=== PATIENT | female | born 1975 | race Caucasian/White ===

== ENCOUNTER → 2023-12-18 06:20 | Day surgery (SDC) | payer OTHER, BC, SELFPAY | LOC: GI 06:20 | PROVIDERS: ATTENDING PHYSICIAN Internal Medicine Gastroenterology | DX: Z12.11 Encounter for screening for malignant neoplasm of colon (principal); Z83.719 Family history of colon polyps, unspecified; K57.30 Diverticulosis of large intestine without perforation or abscess without bleeding; K63.5 Polyp of colon | CPT/HCPCS: 45385; 88305 ==

== ENCOUNTER 2024-11-02 01:33 | Inpatient (IN) | payer BC, SELFPAY ==
[2024-11-01 16:28] VITALS: BP 163/96
[2024-11-01 16:48] LABS: Hematocrit 43.8 % (37.0-47.0); Hemoglobin 14.7 g/dL (12.0-16.0); Mean Corp Hgb Conc. 33.6 g/dL (33.0-37.0); Mean Corpuscular Volume 87.3 fL (81.0-99.0); Nucleated Red Blood Cells % 0 %; Platelet Count 220 10^3/uL (130-400); Red Cell Dist. Width 14.6 % (11.5-14.5)
[2024-11-01 16:56] LABS: Urine Character Clear (Clear)
[2024-11-01 17:05] LABS: ALT (SGPT) 30 U/L (0-35); AST (SGOT) 19 U/L (14-36); Albumin 4.8 g/dl (3.5-5.0); Alkaline Phosphatase 66 U/L (38-126); Blood Urea Nitrogen 9 mg/dl (7-17); Calcium 9.9 mg/dl (8.4-10.2); Carbon Dioxide 23 mmol/L (22-30); Chloride 106 mmol/L (98-107); Glucose 193 mg/dl (70-99); Lipase 456 U/L (23-300); Potassium 4.4 mmol/L (3.5-5.1); Sodium 136 mmol/L (135-145); Total Protein 7.9 g/dl (6.3-8.2); eGFR > 60.00
[2024-11-01 17:10] LABS: Troponin I < 0.012 ng/ml
[2024-11-01 22:06] VITALS: BMI 32.5
--- NOTE | 2024-11-01 22:23 | ED.GENMED ---
Addendum entered and electronically signed by Anselmo Dey MD 11/02/24 08:38:
Radiology discrepancy from overnight - possible liver lesion not noted during initial interpretation. Information forwarded to the hospitalist service, as patient was admitted overnight.
Original Note:
History of Present Illness
<Janice Jaramillo MD, Resident - Last Filed: 11/02/24 00:41>
General
Chief Complaint: Abdominal Pain
Source: patient
Time Seen by Provider: 11/01/24 22:01
History of Present Illness
History of Present Illness:
Ms. Linda is a 48-year-old female with history of acute cholecystitis and pancreatitis s/p biliary stenting and eventual cholecystectomy, hypothyroidism s/p thyroid resection, and hyperlipidemia who presents with 3 days of 9/10 crampy abdominal
pain, initially epigastric, now radiating bilaterally to the back in a bandlike pattern. She has tried Motrin without relief. She endorses nausea, anorexia, chills, and diarrhea that started today. She states that the pain is worst after eating
and better laying down, although always there. She denies recent changes in diet, infection, trauma to the area, SOB, recent travel, and symptoms.
Phy Exam
<Janice Jaramillo MD, Resident - Last Filed: 11/02/24 00:41>
General Physical Exam
General Presentation: moderate distress
General Skin: dry and ashen
General Habitus: normal
General Mental: alert
General Hydration: dry mucous membranes
ENT Exam
ENT Exam: EOMI
Pulmonary Exam
Pulmonary Exam: lungs clear and no respiratory distress
Gastrointestinal Exam
Gastrointestinal Exam: soft, non distended and tender (upper abdomen & epigastric area)
Course
<Janice Jaramillo MD, Resident - Last Filed: 11/02/24 00:41>
Orders/Labs/Results
Orders:
Orders
11/01/24 Dinner
NPO
Allow oral meds: Yes
Allow clear liquids: No
11/01/24 16:33
Electrocardiogram (*1) Urgent
Reason for Study: Abdominal Pain
11/01/24 16:34
EKG- Treatment ONCE
11/01/24 16:40
Complete Blood Count/With Diff Urgent
Comprehensive Metabolic Panel Urgent
Lipase Urgent
Troponin I Urgent
11/01/24 16:43
Urinalysis Reflex To Culture Urgent
Date Specimen was Collected: 11/01/24
Time Specimen was Collected: 16:34
Urine Microscopic Reflex Cult Urgent
11/01/24 22:23
0.9% Sodium Chloride 1000 ml [Nss] 1,000 ml IV BOLUS
11/01/24 22:40
Ketorolac [Toradol] 30 mg IV NOW STA
11/01/24 22:51
CT Abd/pelvis W Iv Cont Urgent
Comment:
Reason For Exam: abdominal pain
11/02/24 00:14
Piperacillin/Tazo 3.375 Gram [Zosyn] 3.375 gram in 50 ml IV NOW
11/02/24 00:24
Morphine Sulfate 4 mg IV NOW STA
Ondansetron Injectable [Zofran] 4 mg IV NOW STA
11/02/24 00:33
GASTROINTESTINAL CONSULT Routine
Consulting Provider: David Wood
Was physician already notified: Yes
Reason for consult: Pt w/ choledocholithiasis & acute pancreatitis, needs ERCP, spoke w/ GI ON
11/02/24 00:50
Admit/Transfer Patient As Directed
Co-Sign Provider:
Level of Care: Inpatient admission
Assign to:: Medical/Surgical
Physician / Group: Lucy
Diagnosis: choledocholtihiasis, pancreatitis
Reason for Hospitalization: recurrent gallstone pancreatitis
Expected length of stay greater than two midnights?: Yes
ELOS- Estimated Length of Stay in days: 2
I certify the patient meets the requirements for IP care: Yes
11/02/24 00:52
PRN Pain Medication Management As Directed
May give lesser potent ordered pain med per pt: Yes
preference::
Protocol:: Medication orders for pain may be administered in a
manner that supports deferring to patient preference
when the pt is:
- Requesting an ordered lesser potent pain medication.
Least to most potent pain medications are defined
as: acetaminophen < NSAID < tramadol < opioids
(morphine, oxycodone, hydromorphone).
- Requesting a lesser dose of the same medication IF
ORDERED.
- Requesting a less intrusive route of administration
if both routes are prescribed by the provider (PO <
IV).
11/02/24 00:53
Code Status As Directed
Resuscitation Status: Full Code
11/02/24 02:30
Acetaminophen [Tylenol] 650 mg PO Q4HPRN PRN
Bisacodyl [Dulcolax] 10 mg RECTAL [id number] PRN
HYDROmorphone [Dilaudid] 0.5 mg IV Q4HPRN PRN
Ketorolac [Toradol] 10 mg IV Q6HPRN PRN
Lactated Ringers [Lr] 1,000 ml IV 80 mls/hr
Ondansetron Injectable [Zofran] 4 mg IV Q6HPRN PRN
Polyethylene Glycol Powder [Miralax] 17 grams PO DAILYPRN PRN
11/02/24 02:30
Activity As Directed
Activity Level: With Assistance
Vital Signs As Directed
Frequency: Per unit guidelines
DX Deep Vein Thrombosis Video Routine
11/02/24 06:00
Basic Metabolic Panel IN AM
Complete Blood Count/No Diff IN AM
Levothyroxine [Synthroid] 200 mcg PO DAILY @ 0600
Piperacillin/Tazo 3.375 Gram [Zosyn] 3.375 gram in 50 ml IV Q6H
11/02/24 18:00
Enoxaparin Sodium [Lovenox] 40 mg SC QPM
Abnormal Lab Results
11/01/24 11/01/24
16:40 16:43
WBC 15.3 H 10^3/uL
(4.8-10.8)
RDW 14.6 H %
(11.5-14.5)
MPV 11.8 H fL
(7.4-10.4)
Abs Immat Gran (auto) 0.1 H 10^3/uL
(0-0.05)
Absolute Neuts (auto) 12.8 H 10^3/uL
(1.4-6.5)
Absolute Monos (auto) 0.9 H 10^3/uL
(0.1-0.6)
Neutrophils % 83.5 H %
(42.2-75.2)
Lymphocytes % 9.0 L %
(20.5-51.1)
Creatinine 0.5 L mg/dL
(0.6-1.0)
Glucose 193 H mg/dl
(70-99)
Lipase 456 H U/L
(23-300)
Ur Occult Blood Reflex 3+ A
(Negative)
Urine RBC 7-10 A /HPF
(0-2)
Urine Bacteria (Reflex) Few A
(Negative)
Urine Glucose 2+ A
(Negative)
11/01/24 16:40
11/01/24 16:40
Vital Signs
Initial and Last Documented VS:
Initial Vital Signs
Temp Pulse Resp BP Pulse Ox
98.6 F 105 16 163/96 98
11/01/24 16:28 11/01/24 16:28 11/01/24 16:28 11/01/24 16:28 11/01/24 16:28
Last Documented Vital Signs
Temp Pulse Resp BP Pulse Ox
98.4 F 98 20 121/78 96
11/02/24 02:39 11/02/24 02:39 11/02/24 02:39 11/02/24 02:39 11/02/24 02:39
<Chava Soto, DO - Last Filed: 11/02/24 02:54>
Orders/Labs/Results
Orders:
Orders
11/01/24 Dinner
NPO
Allow oral meds: Yes
Allow clear liquids: No
11/01/24 16:33
Electrocardiogram (*1) Urgent
Reason for Study: Abdominal Pain
11/01/24 16:34
EKG- Treatment ONCE
11/01/24 16:40
Complete Blood Count/With Diff Urgent
Comprehensive Metabolic Panel Urgent
Lipase Urgent
Troponin I Urgent
11/01/24 16:43
Urinalysis Reflex To Culture Urgent
Date Specimen was Collected: 11/01/24
Time Specimen was Collected: 16:34
Urine Microscopic Reflex Cult Urgent
11/01/24 22:23
0.9% Sodium Chloride 1000 ml [Nss] 1,000 ml IV BOLUS
11/01/24 22:40
Ketorolac [Toradol] 30 mg IV NOW STA
11/01/24 22:51
CT Abd/pelvis W Iv Cont Urgent
Comment:
Reason For Exam: abdominal pain
11/02/24 00:14
Piperacillin/Tazo 3.375 Gram [Zosyn] 3.375 gram in 50 ml IV NOW
11/02/24 00:24
Morphine Sulfate 4 mg IV NOW STA
Ondansetron Injectable [Zofran] 4 mg IV NOW STA
11/02/24 00:33
GASTROINTESTINAL CONSULT Routine
Consulting Provider: David Wood
Was physician already notified: Yes
Reason for consult: Pt w/ choledocholithiasis & acute pancreatitis, needs ERCP, spoke w/ GI ON
11/02/24 00:50
Admit/Transfer Patient As Directed
Co-Sign Provider:
Level of Care: Inpatient admission
Assign to:: Medical/Surgical
Physician / Group: Lucy
Diagnosis: choledocholtihiasis, pancreatitis
Reason for Hospitalization: recurrent gallstone pancreatitis
Expected length of stay greater than two midnights?: Yes
ELOS- Estimated Length of Stay in days: 2
I certify the patient meets the requirements for IP care: Yes
11/02/24 00:52
PRN Pain Medication Management As Directed
May give lesser potent ordered pain med per pt: Yes
preference::
Protocol:: Medication orders for pain may be administered in a
manner that supports deferring to patient preference
when the pt is:
- Requesting an ordered lesser potent pain medication.
Least to most potent pain medications are defined
as: acetaminophen < NSAID < tramadol < opioids
(morphine, oxycodone, hydromorphone).
- Requesting a lesser dose of the same medication IF
ORDERED.
- Requesting a less intrusive route of administration
if both routes are prescribed by the provider (PO <
IV).
11/02/24 00:53
Code Status As Directed
Resuscitation Status: Full Code
11/02/24 02:30
Acetaminophen [Tylenol] 650 mg PO Q4HPRN PRN
Bisacodyl [Dulcolax] 10 mg RECTAL [id number] PRN
HYDROmorphone [Dilaudid] 0.5 mg IV Q4HPRN PRN
Ketorolac [Toradol] 10 mg IV Q6HPRN PRN
Lactated Ringers [Lr] 1,000 ml IV 80 mls/hr
Ondansetron Injectable [Zofran] 4 mg IV Q6HPRN PRN
Polyethylene Glycol Powder [Miralax] 17 grams PO DAILYPRN PRN
11/02/24 02:30
Activity As Directed
Activity Level: With Assistance
Vital Signs As Directed
Frequency: Per unit guidelines
DX Deep Vein Thrombosis Video Routine
11/02/24 06:00
Basic Metabolic Panel IN AM
Complete Blood Count/No Diff IN AM
Levothyroxine [Synthroid] 200 mcg PO DAILY @ 0600
Piperacillin/Tazo 3.375 Gram [Zosyn] 3.375 gram in 50 ml IV Q6H
11/02/24 18:00
Enoxaparin Sodium [Lovenox] 40 mg SC QPM
Abnormal Lab Results
11/01/24 11/01/24
16:40 16:43
WBC 15.3 H 10^3/uL
(4.8-10.8)
RDW 14.6 H %
(11.5-14.5)
MPV 11.8 H fL
(7.4-10.4)
Abs Immat Gran (auto) 0.1 H 10^3/uL
(0-0.05)
Absolute Neuts (auto) 12.8 H 10^3/uL
(1.4-6.5)
Absolute Monos (auto) 0.9 H 10^3/uL
(0.1-0.6)
Neutrophils % 83.5 H %
(42.2-75.2)
Lymphocytes % 9.0 L %
(20.5-51.1)
Creatinine 0.5 L mg/dL
(0.6-1.0)
Glucose 193 H mg/dl
(70-99)
Lipase 456 H U/L
(23-300)
Ur Occult Blood Reflex 3+ A
(Negative)
Urine RBC 7-10 A /HPF
(0-2)
Urine Bacteria (Reflex) Few A
(Negative)
Urine Glucose 2+ A
(Negative)
11/01/24 16:40
11/01/24 16:40
Vital Signs
Initial and Last Documented VS:
Initial Vital Signs
Temp Pulse Resp BP Pulse Ox
98.6 F 105 16 163/96 98
11/01/24 16:28 11/01/24 16:28 11/01/24 16:28 11/01/24 16:28 11/01/24 16:28
Last Documented Vital Signs
Temp Pulse Resp BP Pulse Ox
98.4 F 98 20 121/78 96
11/02/24 02:39 11/02/24 02:39 11/02/24 02:39 11/02/24 02:39 11/02/24 02:39
<Janice Jaramillo MD, Resident - Last Filed: 11/02/24 00:41>
MDM/Problems Addressed
Differential Diagnosis Includes:
Pancreatitis
Appendicitis
Gastroenteritis
Colitis
Pyelonephritis
MDM/Problems Addressed:
Ms. Linda is a 48-year-old female with history of acute cholecystitis and pancreatitis s/p biliary stenting and eventual cholecystectomy, hypothyroidism s/p thyroid resection, and hyperlipidemia who presents with 3 days of 9/10 crampy abdominal
pain, initially epigastric, now radiating bilaterally to the back in a bandlike pattern.
#Abdominal Pain
#History of Acute Cholecystitis and Pancreatitis
#Choledocholithiasis
#Acute Pancreatitis
WBC 15.3, Lipase 456. UA with blood/RBC, bacteria. BP 163/96, HR 105. TTP epigastrically and towards the back. Overall, her presentation is most concerning for acute pancreatitis, but appendicitis, gastroenteritis, and colitis are also possible.
Await final CT A/P read; prelim supports acute pancreatitis and choledocholithiasis. We will admit to med/surg for further workup and treatment.
- IV NSS 1L Bolus
- IV Toradol 30mg x 1
- CT A/P with IV Contrast:
-- Prelim report by Dr. Alvarez:
5 mm stone at the level of the ampulla resulting in dilation of the pancreatic duct, which measures up to 6 mm, concerning for choledocholithiasis/retained stone. Peripancreatic stranding, may represent acute pancreatitis.
No bowel obstruction. Likely s/p cholecystectomy. Normal appendix.
Incidentals:
-No obstructive uropathy.
-Right hepatic hypodensity, not well-characterized
- Per GI (Dr. Wood):
--Placed formal consult
--Patient NPO for GI procedure/ERCP in am
--IV Zosyn 3.375mg x1
<Janice Jaramillo MD, Resident - Last Filed: 11/02/24 00:41>
*Pulse Oximetry
SaO2: 100
Oxygen Mode of Delivery: Room air
Patient hypoxic: no
*Critical Care Note
Total Time (30-74mins, 75-104mins- exclusive of procedures): Not Applicable
ED Attending Note
<Janice Jaramillo MD, Resident - Last Filed: 11/02/24 00:41>
-
Portions of this chart may have been created with voice recognition software.� Occasional wrong word or��sound alike� substitutions may have occurred due to the inherent limitations of voice recognition software.
<Chava Soto, DO - Last Filed: 11/02/24 02:54>
ED Attending Note
Patient seen and examined by attending physician: Yes
I performed a history and physical exam of patient and discussed management with resident, I reviewed resident's note and agree with documented findings and plan of care.: Yes
ED Attending Note:
I have reviewed and agree with history and treatment plan by Janice Jaramillo MD. My exam revealed
Physical Exam
General: no apparent distress, not acutely ill
Neck: supple. no meningeal signs. normal posterior pharynx
Heart: s1/s2 regular rate and rhythm, no murmur. equal radial
pulses.
HEENT: Pupils equal round reactive to light, EOMI
Lungs: no acute respiratory distress. clear bilaterally
Abdomen: normal bowel sounds. Epigastric tenderness. No CVAT
Neuro: alert and oriented. no focal neurological deficits cranial nerves II through XII intact
Skin: no rash
Psychiatric: well kept. interactive and cooperative
Extremities: no edema. no calf tenderness. negative homans. good distal pulses
CT abdomen pelvis consistent with pancreatitis and pancreatic duct stone. Admit to hospitalist with consult to GI for ERCP.
Discharge Plan
Departure
Patient Disposition: Admit
Date of Disposition: 11/02/24
Time of Disposition: 00:35
Admit to: Med/Surg
Presentation/result/management discussed w/ accepting MD/DO: Hospitalist
Condition: Good
Discharge Problem:
Choledocholithiasis, Acute pancreatitis
Interventions
Interventions:
*Risk Screen - Suicide Last Done: 11/01/24 16:28
*General Assessment Last Done: 11/01/24 22:12
*Neglect/Abuse Screening Last Done: 11/01/24 16:28
*ED- Fall Risk Assessment Last Done: 11/01/24 22:12
*ED COVID-19 Vaccine History Last Done: 11/01/24 22:12
*Nursing Disposition Last Done: 11/02/24 02:18
PK-Pkqufd-Duukbscuyd Assessment Last Done: 11/01/24 23:23
Discharge Date and Time
Discharge Date/Time: 11/02/24 02:18
[2024-11-01] MEDS: TORADOL 30 MG IV (22:41)
[2024-11-01] MEDS: NSS 1000 IV (22:44)
[2024-11-01 23:20] VITALS: BP 122/64
[2024-11-02] VITALS (13 sets, daily range): BP systolic 93–129; BP diastolic 55–79; BMI 31.0
[2024-11-02] MEDS: ZOSYN 50 IV ×4 (00:21→20:19)
--- NOTE | 2024-11-02 00:43 | HPS.HSE ---
Family Physician
-
Family Physician: Ken Jain MD
Chief Complaint
-
Abdominal pain
History of Present Illness
This is a 48-year-old female with past medical history significant for cholecystitis and pancreatitis status post stenting and later on cholecystectomy, hypothyroid status post thyroid resection, hyperlipidemia who presents to the emergency
department about 3 days of crampy abdominal pain.
She reports initially having epigastric pain now radiating to the back with nausea chills and diarrhea. She denied fevers at home. She has intolerance of oral intake. She denies any sick contact. She denies any recent travels. She denies any
alcohol use. She denies any changes to the color of her skin in the urine or eyes.
On arrival in the emergency department she was afebrile, blood pressure was 160/90 with a pulse of 91 and she was satting 100% on room air.
CBC shows a white count of 15.3 otherwise unremarkable. Her electrolytes BUN/creatinine were normal. Glucose was 183.
Lipase was elevated at over 400. LFTs were normal.
CT of the abdomen and pelvis showing 5 mm stone at the level of the ampulla resulting dilation of the pancreatic duct which now measures up to 6 mm concerning for retained stone, peripancreatic stranding was observed.
Medical History
Past Medical History
Past Medical History: Reports Hypercholesterolemia, Hypothyroidism and Other
Additional Past Medical History:
History of gallstone pancreatitis status post ERCP and stenting 2018
Past Surgical History: Reports Cholecystectomy
Social History
Tobacco: Non-smoker
Alcohol: Occasional
Drug: None
Family History
Family History: Not pertinent
Allergies / Home Medications
Allergies reflects when Allergies were last updated in [facility].
Home Medications with original date entered in [facility]
Allergy/Medication List:
Allergies
Allergy/AdvReac Type Severity Reaction Status Date / Time
latex Allergy Rash Verified 11/01/24 16:32
Home Medications
atorvastatin 10 mg tablet 10 mg PO HS 11/01/24
levothyroxine 200 mcg tablet 200 mcg PO DAILY 11/01/24
multivitamin 1 tab PO DAILY 11/01/24
Review of Systems
-
Constitutional: Reports No Symptoms
EENT: Reports No Symptoms
Respiratory: Reports No Symptoms
Cardiac: Reports No Symptoms
Abdomen/GI: Reports Abdominal Pain, Nausea and Vomiting
: Reports No Symptoms
Musculoskeletal: Reports No Symptoms
Skin: Reports No Symptoms
Neurological: Reports No Symptoms
Endocrine: Reports No Symptoms
Hematologic/Lymphatic: Reports No Symptoms
Psych: Reports No Symptoms
Physical Exam
Vital Signs
Vital Signs
Temp Pulse Resp BP Pulse Ox
98.6 F 91 22 163/96 99
11/01/24 16:28 11/01/24 22:45 11/01/24 22:45 11/01/24 16:28 11/01/24 23:20
Physical Exam
General: Well Developed, Well Nourished and No Apparent Distress
HEENT: NormoCephalic, Moist mucous membranes and Atraumatic
Respiratory: Clear
Cardiac: S1/S2 and Regular Rhythm; No Murmur or Rub
GI: Soft, Non Distended and Normal Bowel Sounds; No Organomegaly
Rectal: Deferred by Provider
Musculoskeletal: No Clubbing, No Cyanosis and No Edema
Skin: No Rash
Neuro: AO x 3 and Nonfocal/grossly intact
Laboratory Results
-
11/01/24 16:40
11/01/24 16:40
Laboratory Results
Total Bilirubin 0.8 mg/dl (0.2-1.3) 11/01/24 16:40
AST 19 U/L (14-36) 11/01/24 16:40
ALT 30 U/L (0-35) 11/01/24 16:40
Alkaline Phosphatase 66 U/L (38-126) 11/01/24 16:40
Troponin I < 0.012 ng/ml 11/01/24 16:40
Lipase 456 U/L (23-300) H 11/01/24 16:40
Data Reviewed
-
CT Scan: Report Reviewed by me
Lab Data: Labs Reviewed by me
Old Records: Reviewed
Impression/Plan
-
IMPRESSION:
This is a 48-year-old female presents to the emergency department with abdominal pain found to have pancreatitis with choledocholithiasis. LFTs are normal. There is no fevers. She does have leukocytosis to 15.3. Unlikely but cannot rule out
cholangitis entirely.
PLAN:
Choledocholithiasis with pancreatitis
-Admit to MedSurg
-N.p.o.
-IV Zosyn
-Pain control antiemetic
-Trend LFTs
- based on CT, will hold off on MRCP pending GI eval
-GI consulted, possible ERCP in am.
DVT PPX - lovenox sq
Code status - Full code
[2024-11-02] MEDS: DILAUDID 0.5 MG IV ×4 (01:44→14:56)
[2024-11-02] MEDS: LR 1000 IV ×2 (02:45→20:19)
[2024-11-02] MEDS: SYNTHROID 200 MCG PO (05:42)
[2024-11-02 06:53] LABS: Hematocrit 38.4 % (37.0-47.0); Hemoglobin 12.9 g/dL (12.0-16.0); Mean Corp Hgb Conc. 33.6 g/dL (33.0-37.0); Mean Corpuscular Volume 87.5 fL (81.0-99.0); Platelet Count 179 10^3/uL (130-400); Red Cell Dist. Width 14.6 % (11.5-14.5)
[2024-11-02 07:23] LABS: Blood Urea Nitrogen 6 mg/dl (7-17); Calcium 8.6 mg/dl (8.4-10.2); Carbon Dioxide 22 mmol/L (22-30); Chloride 109 mmol/L (98-107); Estimated Creatinine Clearance 106 ml/min; Glucose 128 mg/dl (70-99); Potassium 3.7 mmol/L (3.5-5.1); Sodium 136 mmol/L (135-145); eGFR > 60.00
--- NOTE | 2024-11-02 08:24 | CON.GI ---
Addendum entered and electronically signed by David Wood MD 11/02/24 15:51:
The patient was seen and examined by me independently in collaboration with the nurse practitioner.
Past medical history/social history/medications/allergies/family history reviewed.
Lab data and imaging data reviewed.
48-year-old female past medical history of papillary thyroid cancer with prior thyroidectomy and new radiation, prior gallstone pancreatitis with post ERCP pancreatitis Edwin in 2019, cholecystectomy also in 2019 presenting with abdominal pain
in the setting of NSAID use post hysterectomy in July 2024, found to have normal LFTs including normal bilirubin, lipase 456, white blood cell count 15.3 on admission, repeat 12.4, however was also found to have 0.5 cm stone at the level of the
ampulla with mild dilation of pancreatic duct and mild peripancreatic stranding suspicious for pancreatitis. 1.7 cm hepatic lesion recommend MRI for evaluation.
Reviewed with advanced endoscopy. Concerning for possible choledocholithiasis although no obstruction given normal bilirubin, possible pancreatic duct stone given pancreatic ductal dilation, differential also includes peptic ulcer disease given
NSAID use.
Plan for EUS/ERCP/EGD for further evaluation with Dr. Campbell. I discussed with patient risk, alternatives, benefits of procedure including but not limited to infection, perforation, bleeding, pancreatitis. Patient did ask about her risk of
pancreatitis given her prior history of pancreatitis which would be increased. I recommend that she reviews this as well with Dr. Campbell. Further recommendations pending procedure.
For now, continue IV antibiotics, n.p.o., IV fluids.
Incidentally found liver lesions needs MRI outpatient.
Addendum entered and electronically signed by CONCETTA Carballo 11/02/24 10:13:
reviewed with Dr. Campbell plan for ERCP today +/- EGD. reviewed with pt agreeable to proceed-- discussed with pt for OP MRI to follow up on liver leisons.
Original Note:
Consultation
-
Date/Time Consultation Requested: 11/02/2429
Date/Time Consultation Performed: 11/02/24824
Requesting Provider: Janice Jaramillo MD
Performing Provider: CONCETTA Sarah, Jossie Wood MD
Reason for Consultation: pancreatitis
Medical History
Chief Complaint / HPI
History of Present Illness:
Pt is a 48yo with hx papillary thyroid CA with prior thyroidectomy no prior radiation, hypercholesterolemia, fibroid with lap GRABIEL July 2024,sinus surgery and prior cholecystitis, pancreatitis with prior stenting and erika with onset of abdominal
pain. On admission noted with normal LFT's with lipase 456. CT complete with concern for 0.5 cm stone at level of ampulla with mild dilatation of pancreatic duct and mild panc stranding suspicious for acute pancreatitis. Also noted hepatomegaly
1.7 cm hepatic lesion benign hemangioma but not confirmed other lesions note excluded recommended MRI. Fat containing umbilical hernia possible small HH.
In review with patient she recall pancreatitis in 2018 with 2 week admission. Initially at [facility] with ERCP with stent placement but was not sure if stone seen. She proceeded for erika after admission but was fine since that
time. She had recent hysterectomy in July at [place] with some post-op NSAID use but denies anticoagulation use. She began with abdominal pain on Thursday. First felt muscular with return to activity since hysterectomy but then pain intensified
and similar to prior pancreatitis. She admits to pain with nausea, temp below 100 and bout of diarrhea. pain was 10/10 at worse now 2/10 after pain meds. Better with pain pain and worse with eating. She denies any wt loss, odynophagia,
dysphagia, GERD, vomiting, constipation, blood or black in stools.
Past Medical History
Past Medical History: Cancer (papillary thyroid CA), Hypercholesterolemia and Other (seasonal allergies, gallstone pancreatitis with prior ERCP with stenting, lichen sclerosis eczema, vitamin D deficiency, uterine fibroids )
Past Surgical History: Cholecystectomy, (x 2 ), Gynecological (hysterectomy and b/l salpingectomy ) and Other (thyroidectomy, sinus surgery )
Social History
Tobacco: Former Smoker
Alcohol: Occasional
Drug: None
Personal:
Living: With Family
Employment: Employed
Family History
Family History: Other (sister wtih colon polyps, erika and hx crohns disease no family hx pancreatitis or pancreatic Cancer )
Allergies / Home Medications
Allergy/AdvReac Type Severity Reaction Status Date / Time
latex Allergy Rash Verified 11/01/24 16:32
�Medication �Instructions �Recorded
atorvastatin 10 mg tablet 10 mg PO HS 11/01/24
levothyroxine 200 mcg tablet 200 mcg PO DAILY 11/01/24
multivitamin 1 tab PO DAILY 11/01/24
Review of Systems
-
History Source: Patient
Constitutional: Reports No Symptoms
EENT: Reports No Symptoms
Respiratory: Reports No Symptoms
Abdomen/GI: Reports Abdominal Pain, Nausea and Diarrhea
: Reports No Symptoms
Musculoskeletal: Reports No Symptoms
Skin: Reports No Symptoms
Neurological: Reports No Symptoms
Endocrine: Reports No Symptoms
Hematologic/Lymphatic: Reports No Symptoms
Vital Signs
Temp Pulse Resp BP Pulse Ox
98.4 F 98 20 121/78 96
11/02/24 02:39 11/02/24 02:39 11/02/24 02:39 11/02/24 02:39 11/02/24 02:39
Physical Exam
Exam
General: Well Developed, Well Nourished and No Apparent Distress
HEENT: Normocephalic and Anicteric
Respiratory: Clear
Cardiac: Regular Rhythm
GI: Soft, Non Distended and Tender (epigastric with mild guarding )
Musculoskeletal: No Clubbing and No Cyanosis
Skin: Warm and Dry
Neuro: Awake, Alert and AO x 3
Psych: Calm
Results
WBC 12.4 10^3/uL (4.8-10.8) H 11/02/24 06:21
Hgb 12.9 g/dL (12.0-16.0) 11/02/24 06:21
Hct 38.4 % (37.0-47.0) 11/02/24 06:21
MCV 87.5 fL (81.0-99.0) 11/02/24 06:21
Plt Count 179 10^3/uL (130-400) 11/02/24 06:21
Absolute Neuts (auto) 12.8 10^3/uL (1.4-6.5) H 11/01/24 16:40
Sodium 136 mmol/L (135-145) 11/02/24 06:21
Potassium 3.7 mmol/L (3.5-5.1) 11/02/24 06:21
Chloride 109 mmol/L (98-107) H 11/02/24 06:21
Carbon Dioxide 22 mmol/L (22-30) 11/02/24 06:21
BUN 6 mg/dl (7-17) L 11/02/24 06:21
Creatinine 0.5 mg/dL (0.6-1.0) L 11/02/24 06:21
Calcium 8.6 mg/dl (8.4-10.2) 11/02/24 06:21
Total Bilirubin 0.8 mg/dl (0.2-1.3) 11/01/24 16:40
AST 19 U/L (14-36) 11/01/24 16:40
ALT 30 U/L (0-35) 11/01/24 16:40
Alkaline Phosphatase 66 U/L (38-126) 11/01/24 16:40
Lipase 456 U/L (23-300) H 11/01/24 16:40
Diagnostic Image Results:
11/01/24-- CT Abd/pelvis W Iv Cont
Prior cholecystectomy. 0.5 cm stone at the level of the ampulla of Vater with mild dilatation of the pancreatic duct and mild peripancreatic stranding suspicious for acute pancreatitis.
Mild hepatomegaly.
1.7 cm right lobe hepatic lesion which may represent a benign hemangioma but cannot be confirmed on the basis of this study. Other hepatic lesions cannot be excluded. Recommend MRI for more complete evaluation. Findings discussed by telephone with
Dr. Dey in the emergency department at 0832 hours on November 02, 2024.
Small fat only containing umbilical hernia and possible small hiatal hernia.
06/24/18 - US abdomen
1. 2-cm hypoechoic focus at the pancreas head. Differential diagnosis: prominent peripancreas lymph node (favored) versus exophytic pancreas head mass.
Recommendation: Abdomen MRI or CT for specific anatomic diagnosis.
2. Two liver foci, the larger 2 cm. Appearance characteristic of benign hemangioma.
Positive finding -- 2-cm pancreas/peripancreas nodule. Recommend MRI or CT.
Office of referring provider notified by telephone and by report fax.
Prior GI Procedures:
EGD: none
ERCP with stenting at [facility] 2019 for GS pancreatitis
Colonoscopy: shi 12/2023- 6 mm polyp TC, diverticulosis bx hyperplastic changes and lymphoid aggregate
Assessment / Plan
-
Pt is a 48yo with hx papillary thyroid CA with prior thyroidectomy no prior radiation, hypercholesterolemia, fibroid with lap GRABIEL July 2024,sinus surgery and prior cholecystitis, pancreatitis with prior stenting and erika with onset of abdominal
pain. On admission noted with normal LFT's with lipase 456. CT complete with concern for 0.5 cm stone at level of ampulla with mild dilatation of pancreatic duct and mild panc stranding suspicious for acute pancreatitis. Also noted hepatomegaly
1.7 cm hepatic lesion benign hemangioma but not confirmed other lesions note excluded recommended MRI. Fat containing umbilical hernia and possible small HH.
-mild pancreatitis with epigastric pain, mild pancreatitis on imaging
-concern for 0.5 cm CBD stone at level of ampulla
-leukocytosis
-hx gallstone pancreatitis/cholecystitis with 2 week admission in 2019 at [place] with ERCP stenting and erika
- 1.7 cm hepatic lesion/other lesions not excluded possible hemangioma
-recent NSAID use post GRABIEL
other med problems:
-papillary thyroid CA with prior thyroidectomy no prior radiation
-hypercholesterolemia
-fibroid with lap GRABIEL July 2024
-fat containing umbilical hernia/possible small HH per CT
PLAN:
etiology of symptoms with concern for CBD stone on CT vs PUD with recent NSAID vs other
will review imaging with Dr. Campbell for possible ERCP later today +/- EGD with hx NSAID use
cont NPO
IVF -- will increase to 150ml/hr
pain control
IV abx
NSAID avoidance
also noted liver lesions on CT -- prior lesion noted on US and known to patient t/c eventual MRI abdomen Outpatient to confirm-- reviewed with patient and copy of imaging given to patient
-
-
Thank you for consultation and allowing me to participate in the patient's care. Please call the radiation / chemistry technician GI physician during the after hours with any questions or concerns.
[2024-11-02] MEDS: PROTONIX IV 40 MG IV (10:47)
[2024-11-02] MEDS: NSS (PRESERVATIVE FREE) 10 ML IV (10:47)
--- NOTE | 2024-11-02 12:46 | CM ---
Initial Assessment Completed by RUTH Betancur.
Patient's is present. Patient lives in a single family home, 3 levels, 5 steps to enter, 5 steps to the 2nd floor and 8 steps to the third floor. Patient uses no DME, has not used home care services or inpatient SNF.
PCP: Ken Jain and uses [facility] pharmacy in [place]. Patient has transportation home.
Plan: Likely home with no needs.
--- NOTE | 2024-11-02 14:53 | W.PN.UPDATE ---
Update Note
Progress Note Update
Nonbbillable note
1. Distal CBD stone/choledocholithiasis-[address] abdomen pelvis noted in distal CBD. GI involved and plan to take patient for ERCP. Patient has a history of pancreatic stent in the past for episode of pancreatitis
2. Elevated lipase -minimally elevated lipase due to choledocholithiasis. Diet resumption postprocedure per GI
[2024-11-02] MEDS: LR IV (18:03)
--- NOTE | 2024-11-02 19:15 | W.PN.UPDATE ---
Update Note
Progress Note Update
EUS today showed features of chronic pancreatitis including parenchyma changes, dilated and tortuous pancreatic duct, and multiple calculi in the head/uncinate process, unclear if this stone is intraductal or parenchymal. Her CBD was normal without
choledocholithiasis. ERCP was performed, multiple attempts to cannulate ventral pancreatic duct could not be accomplished due to inability to locate pancreatic orifice. Decision was made to access the dorsal pancreatic duct via minor papilla, once
achieved copious amount of thick white proteinaceous pancreatic fluid and fragments of calcified stones drained. 5 Fr by 5 cm plastic pancreatic ductal stent was placed. The etiology of her chronic pancreatitis remains unclear, as she denies
alcohol or cigarettes. She did have a gallstone pancreatitis s/p ERCP at [facility] in 2019, which resulted in prolonged hospitalization. Records should be obtained and reviewed which may help to clarify etiology of her chronic pancreatitis.
[2024-11-02] MEDS: LOVENOX 40 MG SC (20:20)
[2024-11-03] MEDS: ZOSYN 50 IV ×3 (01:14→12:56)
[2024-11-03] MEDS: LR 1000 IV (05:07)
[2024-11-03] MEDS: SYNTHROID 200 MCG PO (05:09)
[2024-11-03] MEDS: NSS (PRESERVATIVE FREE) 10 ML IV (08:01)
[2024-11-03] MEDS: PROTONIX IV 40 MG IV (08:01)
[2024-11-03 08:42] VITALS: BP 124/77
[2024-11-03 08:54] LABS: Hematocrit 37.3 % (37.0-47.0); Hemoglobin 12.7 g/dL (12.0-16.0); Mean Corp Hgb Conc. 34.0 g/dL (33.0-37.0); Mean Corpuscular Volume 87.8 fL (81.0-99.0); Platelet Count 216 10^3/uL (130-400); Red Cell Dist. Width 14.3 % (11.5-14.5)
[2024-11-03 09:07] LABS: ALT (SGPT) 23 U/L (0-35); AST (SGOT) 16 U/L (14-36); Albumin 3.8 g/dl (3.5-5.0); Alkaline Phosphatase 64 U/L (38-126); Blood Urea Nitrogen 8 mg/dl (7-17); Calcium 9.2 mg/dl (8.4-10.2); Carbon Dioxide 23 mmol/L (22-30); Chloride 108 mmol/L (98-107); Estimated Creatinine Clearance 106 ml/min; Glucose 107 mg/dl (70-99); Potassium 4.2 mmol/L (3.5-5.1); Sodium 137 mmol/L (135-145); Total Protein 6.4 g/dl (6.3-8.2); Triglycerides 83 mg/dl (10-149); eGFR > 60.00
--- NOTE | 2024-11-03 12:26 | W.PN.HOSP.TC ---
Addendum entered and electronically signed by Mitchell Agosto MD 11/04/24 15:24:
Add onto diagnosis list
SIRS
Original Note:
Today's Communication/Plan
-
await further gi input
diet/ivf per GI
maintain on abx
Assessment / Plan
Assessment / Plan
ERCP/EUS - Prior biliary sphincterotomy appeared open. Multiple attempts
were made to locate pancreatic orifice but could not be located and
thus ventral pancreatic duct could not be cannulated. The dorsal
pancreatic duct was accessed via minor papilla.
- Moderate dilatation of the entire opacified area of the
pancreatic duct was found.
- An irregularity was found in the main pancreatic duct.
- The biliary tree was swept and sludge was found.
- A minor papilla sphincterotomy was performed.
- One plastic stent was placed into the dorsal pancreatic duct.
1 Gallstone pancreatitis
Chronic pancreatitis with pancreatic duct stent in place
- Patient underwent EGD/ERCP with findings as above. EUS showed multiple calculi in the head/uncinate process of pancreas which were unclear if very intraductal or parenchymal in nature. CBD was normal without any choledocholithiasis.
- Clinically feeling better and no significant abdominal pain
- Maintained on empiric Zosyn
- Continue on IV fluids/clear liquid diet, advancement of diet per GI
- Interventional GI recommending follow-up MRI abdomen, discussed with on-call GI and will decide the need
2. Hypothyroidism
- Maintain on home dose of levothyroxine
3. Hyperlipidemia
- Continue atorvastatin
DVT prophylaxis -SCD
Full code
Care plan discussed with GI on-call.
Total time spent : 53 mins
Anticipated Discharge: Within 24 hours
Subjective/Interval History
-
Date of Service: November 03, 2024
Resting comfortable in bed
Denies significant abdominal pain nausea vomiting
Afebrile in night
Objective Data
-
Labs:
Laboratory Results
11/03/24
07:03
WBC 9.9
Hgb 12.7
Hct 37.3
Plt Count 216 D
Sodium 137
Potassium 4.2
Chloride 108 H
Carbon Dioxide 23
BUN 8
Creatinine 0.4 L
Glucose 107 H
Calcium 9.2
Total Bilirubin 0.7
AST 16
ALT 23
Alkaline Phosphatase 64
Vital Signs:
Vital Signs
Temp Pulse Resp BP Pulse Ox
98.4 F 70 16 124/77 100
11/03/24 08:42 11/03/24 08:42 11/03/24 08:42 11/03/24 08:42 11/03/24 08:42
I&O
11/02/24 11/03/24 11/04/24
06:59 06:59 06:59
Intake Total 410 / 410
Balance 410 / 410
Review of Systems
-
Respiratory: Reports No Symptoms
Cardiac: Reports No Symptoms
Abdomen/GI: Reports No Symptoms
Physical Exam
-
General: Negative Appears in Distress or Pain
HEENT: Negative Oxygen
GI: Soft, Nontender and Normal Bowel Sounds
Neuro: Awake, Alert, Oriented and No Motor Deficits
[2024-11-03] MEDS: LR IV (13:55)
--- NOTE | 2024-11-03 14:22 | W.PN.GI.CBS2 ---
Today's Communication / Plan
-
adv diet, MRI outpatient
Assessment / Plan
-
48-year-old female past medical history of papillary thyroid cancer with prior thyroidectomy and new radiation, prior gallstone pancreatitis with post ERCP pancreatitis Edwin in 2019, cholecystectomy also in 2019 presenting with abdominal pain
in the setting of NSAID use post hysterectomy in July 2024, found to have normal LFTs including normal bilirubin, lipase 456, white blood cell count 15.3 on admission, repeat 12.4, however was also found to have 0.5 cm stone at the level of the
ampulla with mild dilation of pancreatic duct and mild peripancreatic stranding suspicious for pancreatitis. 1.7 cm hepatic lesion recommend MRI for evaluation.
ERCP and EUS with Dr. Campbell yesterday. EUS showed pancreatic duct with dilated endoscopic appearance and signs of chronic pancreatitis. Main pancreatic duct dilated. Shadowing, foci, calcification, hyperechoic strands and lobularity in the
pancreas. ERCP unable to cannulate the ventral pancreatic duct and a dorsal pancreatic duct access via minor papilla. Moderate dilation of the entire opacified area of the pancreatic duct. Irregularity in the main pancreatic duct. Biliary tree
swept and sludge were found. Minor papillary sphincterotomy performed. 1 plastic stent in the distal pancreatic duct.
Recommendations:
- adv low fat diet
- stop IVF and abx
- MRI outpatient
- outpatient appt Dr. Campbell 6 weeks
If no pain in AM, ok discharge GI POV
D/w Dr. Campbell and Dr. Agosto.
Subjective
Subjective
Date of Service: November 03, 2024
Objective
Data Reviewed
Laboratory Data:
Laboratory Results
11/03/24 07:03
11/03/24 07:03
Laboratory Results
Total Bilirubin 0.7 mg/dl (0.2-1.3) 11/03/24 07:03
AST 16 U/L (14-36) 11/03/24 07:03
ALT 23 U/L (0-35) 11/03/24 07:03
Alkaline Phosphatase 64 U/L (38-126) 11/03/24 07:03
Lipase 456 U/L (23-300) H 11/01/24 16:40
Vital Signs and I&O:
Vital Signs
Temp Pulse Resp BP Pulse Ox
98.4 F 70 16 124/77 100
11/03/24 08:42 11/03/24 08:42 11/03/24 08:42 11/03/24 08:42 11/03/24 08:42
I&O
11/02/24 11/03/24 11/04/24
06:59 06:59 06:59
Intake Total 410 / 410
Balance 410 / 410
[2024-11-03 16:08] VITALS: BP 122/77
[2024-11-03] MEDS: ZENPEP DELAYED RELEASE CAPSULE 1 CAPSULE PO (17:32)
[2024-11-03] MEDS: LOVENOX 40 MG SC (17:32)
[2024-11-03] MEDS: TYLENOL 650 MG PO (19:47)
[2024-11-03] MEDS: TORADOL 10 MG IV (22:26)
[2024-11-03 23:00] VITALS: BP 128/85
[2024-11-04] MEDS: SYNTHROID 200 MCG PO (05:27)
[2024-11-04 07:15] VITALS: BP 135/83
[2024-11-04] MEDS: PROTONIX IV 40 MG IV (07:39)
[2024-11-04] MEDS: NSS (PRESERVATIVE FREE) 10 ML IV (07:40)
[2024-11-04] MEDS: ZENPEP DELAYED RELEASE CAPSULE 1 CAPSULE PO ×2 (07:40→13:20)
[2024-11-04 09:01] LABS: Lipase 177 U/L (23-300)
--- NOTE | 2024-11-04 11:05 | W.DCSUMMARY ---
Discharge Summary
Discharge Data
Date of Admission: 11/02/24
Date of Discharge: 11/04/24
-
Pending Results: No
Hospital Course
Discharging Physician : Dr Mitchell Agosto
Disposition : Home
Primary care physician : Dr Leticia Jain
Principal Discharge diagnosis :
Gallstone pancreatitis
Chronic Discharge diagnosis :
History of papillary thyroid cancer with thyroidectomy/radiation
History of gallstone pancreatitis
history of cholecystectomy
Hypothyroidism
Hyperlipidemia
Hospital Course :
Patient is a 48-year-old female with above-mentioned past medical history came to ER with new onset of abdominal pain with associated nausea and some chills. Patient was noted to having minimal lipase elevation. A CT abdomen pelvis done in ER
showed 5 mm stone at ampulla of Vater with some peripancreatic edema. Patient have history of previous gallstone pancreatitis and cholecystectomy and pancreatic stenting done in the past as mentioned above. Patient was started on IV fluids/pain
medication/antibiotics and GI was consulted for further evaluation. Based on the CT finding and EGD/US/ERCP was recommended by GI which showed some gastritis on EGD. Patient ERCP showed no stone present in CBD and difficult to cannulate main
pancreatic duct, dorsal duct was accessed with drainage of proteinaceous material and small calcified stones. A plastic stent was placed to help drainage. Patient postoperatively monitored in the hospital. GI after improvement in clinical
scenario recommended for patient to follow-up in office in 4 to 6 weeks with a follow-up MRI. Patient had developed some diarrhea post admission which may related to pancreatitis or from antibiotic related dysbiosis. Patient recommended to take
symptomatic care with Imodium.
Important imaging findings :
None
Procedure findings :
ERCP/EUS - Prior biliary sphincterotomy appeared open. Multiple attempts
were made to locate pancreatic orifice but could not be located and
thus ventral pancreatic duct could not be cannulated. The dorsal
pancreatic duct was accessed via minor papilla.
- Moderate dilatation of the entire opacified area of the
pancreatic duct was found.
- An irregularity was found in the main pancreatic duct.
- The biliary tree was swept and sludge was found.
- A minor papilla sphincterotomy was performed.
- One plastic stent was placed into the dorsal pancreatic duct.
Discharge Plan
-
Patient Disposition: Home (Routine Discharge)
Discharge Diagnosis/Procedures: Gallstone pancreatitis
Condition: Fair
Diet: Low Fat
Activity: As tolerated
Driving Restrictions: As prior to admission
Bathing Restrictions: OK to Shower
Others Tests: reviewed with PCP for OP MRI with liver lesions
Referrals:
Wesley Campbell MD [Active, Gastroenterology] - in four to six weeks
Ken Jain MD [Family Provider, Family Practice] - in one week
Additional Discharge Medication Instructions: avoid NSAIDs - aleve, Motrin, Ibuprofen, etc
Prescriptions:
New
tramadol 50 mg tablet
50 mg PO Q8H PRN (Reason: mod sev pain) Qty: 10 0RF
Continued
multivitamin Tablet
1 tab PO DAILY
atorvastatin 10 mg Tablet
10 mg PO HS
levothyroxine 200 mcg Tablet
200 mcg PO DAILY
Discharge Orders:
Discharge Patient (As Directed); Ordered 11/04/24
Ordered By: Mitchell Agosto
Discharge Date and Time
Print Language: FRENCH
--- NOTE | 2024-11-04 11:44 | CM ---
CM reviewed chart, patient seen bedside, for discharge. Patient denies needs upon discharge, confirms transport home from .
Plan; home no needs
[2024-11-04 13:13] VITALS: BP 128/84
--- NOTE | 2024-11-04 14:22 | PN.CDI ---
CDI
- -
CDI:
Physician Documentation Request
Admit Date: 11/02/24 01:33
Dear Doctor Surendra,
Patient admitted with gallstone pancreatitis.
On admission, WBC 15.3 and HR> 90.
Please clarify which most accurately describes the patient:
SIRS due to non-infectious source
Gallbladder pancreatitis only
Other
Use of terms such as suspected, likely, concern for, or probable (associated with a specific diagnosis that is being evaluated, monitored, or treated as if it exists) are acceptable and can be coded in the inpatient setting, when documented at the
time of discharge.
Thank you,
Pallavi WELLS,RN,CCDS
CDI Specialist
Available via [employer] text
Please use your independent medical judgment in providing your response.
== END 2024-11-04 15:52 | disposition home or self-care (01) | DRG 439 ==
LOC: 4 WEST ACU 01:33
PROVIDERS: Emergency Medicine; Internal Medicine Gastroenterology; Nurse Practitioner Adult Health; ADMITTING PHYSICIAN Internal Medicine; ATTENDING PHYSICIAN Hospitalist; CONSULT PHYSICIAN Internal Medicine Gastroenterology; EMERGENCY PHYSICIAN Emergency Medicine; FAMILY PHYSICIAN Student in an Organized Health Care Education/Training Program
PROC: BD47ZZZ Ultrasonography of Gastrointestinal Tract (ICD-10-PCS; 2024-11-02)
PROC: 0DJ08ZZ Inspection of Upper Intestinal Tract, Via Natural or Artificial Opening Endoscopic (ICD-10-PCS; 2024-11-02)
PROC: 0F7D8DZ Dilation of Pancreatic Duct with Intraluminal Device, Via Natural or Artificial Opening Endoscopic (ICD-10-PCS; 2024-11-02)
DX: K85.10 Biliary acute pancreatitis without necrosis or infection (principal); R65.10 Systemic inflammatory response syndrome (SIRS) of non-infectious origin without acute organ dysfunction; Z85.850 Personal history of malignant neoplasm of thyroid; Z90.49 Acquired absence of other specified parts of digestive tract; E78.00 Pure hypercholesterolemia, unspecified; E89.0 Postprocedural hypothyroidism; Z79.890 Hormone replacement therapy; K86.1 Other chronic pancreatitis; Z87.891 Personal history of nicotine dependence; Z83.719 Family history of colon polyps, unspecified; Z91.040 Latex allergy status; Z79.899 Other long term (current) drug therapy; D18.03 Hemangioma of intra-abdominal structures; Z90.710 Acquired absence of both cervix and uterus
CPT/HCPCS: 74177; 74330; 76000; 80048; 80053; 81003; 81015; 82248; 82787; 83690; 84478; 84484; 85025; 85027; 93005; 96361; 96365; 96375; 99285; C1769; C2617; Q9967

== ENCOUNTER → 2024-11-29 18:35 | Outpatient (REF) | payer BC, SELFPAY | LOC: MRI 18:35 | PROVIDERS: ATTENDING PHYSICIAN Internal Medicine Gastroenterology; FAMILY PHYSICIAN Student in an Organized Health Care Education/Training Program | DX: K76.9 Liver disease, unspecified (principal); K86.1 Other chronic pancreatitis | CPT/HCPCS: 74183; A9575 ==

== ENCOUNTER 2025-02-02 06:15 | Day surgery (SDC) | payer BC, SELFPAY ==
[2025-02-02] VITALS (9 sets, daily range): BP systolic 109–135; BP diastolic 68–81; BMI 27.6
== END 2025-02-02 14:57 | disposition home or self-care (01) ==
LOC: SDS 06:15
PROVIDERS: ATTENDING PHYSICIAN Internal Medicine Gastroenterology
DX: K86.1 Other chronic pancreatitis (principal); T85.590A Other mechanical complication of bile duct prosthesis, initial encounter; Y83.1 Surgical operation with implant of artificial internal device as the cause of abnormal reaction of the patient, or of later complication, without mention of misadventure at the time of the procedure
CPT/HCPCS: 43275; 74330; 76000; C1769